=== PATIENT | female | born 1980 | race American Indian/Alaskan Native ===

== ENCOUNTER 2017-07-26 09:50 | Emergency (ER) | payer MEDICAID ==
[2017-07-26 09:50] VITALS: BMI 29.2
[2017-07-26 10:00] VITALS: TEMP 97.6; O2SAT 100
--- NOTE | 2017-07-26 10:34 | C.PDOC ---
History Of Present Illness 37 y/o F c history of smoking, PCP/marijuana use p/w chest pain and palpitations. Patient states palpitations for 1 week, went to [facility] [place] times [place], now states chest pain began last night and comes to this ED. Pain is L sided, sharp, nonradiating, associated with shortness of breath, nausea, clammy hands. She denies fever, cough, vomiting, leg swelling. Time Seen by Provider: 07/26/17 10:06 Chief Complaint (Nursing): Chest Pain Past Medical History Vital Signs: Last Vital Signs Temp 97.6 F 07/26/17 09:57 Pulse 86 07/26/17 09:57 Resp 20 07/26/17 09:57 BP 135/95 H 07/26/17 09:57 Pulse Ox 100 07/26/17 12:09 - Medical History PMH: Anxiety, Asthma Denies: Diabetes, Hepatitis, HIV, HTN, Seizures, Sexually Transmitted Disease Family History: States: No Known Family Hx - Social History Hx Alcohol Use: Yes Hx Substance Use: Yes - Immunization History Hx Tetanus Toxoid Vaccination: No Hx Influenza Vaccination: No Hx Pneumococcal Vaccination: No Review Of Systems Except As Marked, All Systems Reviewed And Found Negative. Constitutional: Negative for: Fever Gastrointestinal: Negative for: Vomiting Physical Exam - Physical Exam Appears: No Acute Distress Skin: Normal Color Head: Atraumatic, Normacephalic Eye(s): bilateral: PERRL Oral Mucosa: Moist Neck: No Midline Cervical Tenderness, Supple Chest: No Tenderness Cardiovascular: Rhythm Regular Respiratory: Normal Breath Sounds Gastrointestinal/Abdominal: Soft, No Tenderness Back: No CVA Tenderness, No Vertebral Tenderness Extremity: No Tenderness, No Swelling Pulses: Left Radial: Normal, Right Radial: Normal Neurological/Psych: Normal Speech, Normal Cognition Gait: Steady ED Course And Treatment - Laboratory Results Result Diagrams: 07/26/17 10:42 07/26/17 10:42 O2 Sat by Pulse Oximetry: 100 Medical Decision Making Medical Decision Making: EKG NSR 63 bpm, no ST elevations or T wave inversions. Patient appears anxious, presenting with palpitations, chest pain, and visibly tremulous. Differential includes most likely anxiety, also considering drug abuse and ACS. Will order enzymes, treat with Aspirin. Will observe in ED. I discussed the diagnostic possibilities with the patient at length and informed her of the pertinent ED work up but that she requires further evaluation with primary care in office setting. CXR IMPRESSION: Trace of pleural effusion versus fibrosis blunting the left costophrenic sulcus. No right pleural effusion. No infiltrate bilaterally. Patient in ED in no distress. Labs unremarkble other than mild transaminitis and PCP. Discharged home, f/u primary care, return to ED for any other concern. Disposition - Disposition Disposition: HOME/ ROUTINE Disposition Time: 12:10 Condition: STABLE Instructions: Chest Pain (ED) Forms: [facility] [facility] ([employer]) - POA Core Measure Indicators: Chest Pain - Clinical Impression Clinical Impression: Chest pain
[2017-07-26 10:46] LABS: BASO # 0.1 K/uL (0.0-0.2); EOS # 0.1 K/uL (0.0-0.7); EOS % 1.8 % (0.0-4.0); LYMPH # 1.4 K/uL (1.0-4.3); LYMPH % 21.4 % (20.0-40.0); MEAN CELL VOLUME 82.4 fL (81.0-99.0); MEAN CORPUSCULAR HEMOGLOBIN 27.2 pg (27.0-31.0); MEAN PLATELET VOLUME 7.9 fL (7.2-11.7); MONO # 0.5 K/uL (0.0-0.8); MONO % 7.1 % (0.0-10.0); WHITE BLOOD COUNT 6.7 K/uL (4.8-10.8)
--- NOTE | 2017-07-26 10:55 | RAD ---
HISTORY: chest pain, palpitations COMPARISON: No prior. TECHNIQUE: Chest PA and lateral FINDINGS: LUNGS: No infiltrate bilaterally. PLEURA: There is but the left costophrenic sulcus which is a function of trace pleural effusion or possible pleural fibrosis. No right pleural effusion. No pneumothorax bilaterally. CARDIOVASCULAR: Normal. OSSEOUS STRUCTURES: No significant abnormalities. VISUALIZED UPPER ABDOMEN: Normal. OTHER FINDINGS: None. IMPRESSION: Trace of pleural effusion versus fibrosis blunting the left costophrenic sulcus. No right pleural effusion. No infiltrate bilaterally.
[2017-07-26 11:00] LABS: RBC URINE 3 /hpf (0-3); URINE BACTERIA RARE (<OCC); URINE BILIRUBIN NEGATIVE (NEGATIVE); URINE BLOOD NEGATIVE (NEGATIVE); URINE COLOR Yellow (YELLOW); URINE GLUCOSE (UA) NORMAL (Normal); URINE KETONE NEGATIVE (NEGATIVE); URINE LEUKOCYTE ESTERASE TRACE Leu/uL (Negative); URINE PROTEIN NEGATIVE (NEGATIVE); URINE UROBILINOGEN NORMAL mg/dL (0.2-1.0); WBC URINE 7 /hpf (0-5)
[2017-07-26 11:18] LABS: ALB/GLOB RATIO 1.7 (1.0-2.1); ALKALINE PHOSPHATASE 46 U/L (38-126); ALT/SGPT 54 U/L (9-52); AST/SGOT 38 U/L (14-36); BILIRUBIN,TOTAL 1.3 mg/dL (0.2-1.3); BLOOD UREA NITROGEN 9 mg/dL (7-17); CALCIUM 8.3 mg/dl (8.6-10.4); CARBON DIOXIDE 32 mmol/L (22-30); CHLORIDE 98 mmol/L (98-107); GFR AFRICAN-AMERICAN > 60; GLUCOSE,RANDOM 86 mg/dL (65-105); POTASSIUM 3.1 mmol/L (3.6-5.2); SODIUM 138 mmol/L (132-148); TOTAL PROTEIN 5.9 g/dL (6.3-8.3)
[2017-07-26 12:09] VITALS: BP 135/86; PULSE 69; RESP 16
--- NOTE | 2017-07-27 22:27 | CARD ---
APPROVED REPORT EKG Measurement Heart [id number] CT [id number] <Conclusion> Normal sinus rhythm Left ventricular hypertrophy with repolarization abnormality Abnormal ECG
== END 2017-07-26 12:21 | disposition home or self-care (01) ==
LOC: C.ER 09:50
DX: R07.9 Chest pain, unspecified (principal); F41.9 Anxiety disorder, unspecified; F12.10 Cannabis abuse, uncomplicated